=== PATIENT | male | born 1965 | race Caucasian/White ===

== ENCOUNTER 2024-02-25 16:00 | Emergency (ER) | payer BC, SELFPAY ==
[2024-02-25 16:08] VITALS: BP 150/86
[2024-02-25 16:40] LABS: % Basophils 0.5 % (0-2); % Immature Granulocytes 0.4 % (0-0.5); % Lymphocytes 19.4 % (20.5-51.1); % Neutrophils 72.7 % (42.2-75.2); Absolute Basophils 0.1 10^3/uL (0-0.2); Absolute Eosinophils 0.1 10^3/uL (0-0.7); Absolute Lymphocytes 1.9 10^3/uL (1.2-3.4); Absolute Monocytes 0.6 10^3/uL (0.1-0.6); Hematocrit 41.6 % (39.0-52.0); Mean Corp Hgb Conc. 33.7 g/dL (33.0-37.0); Mean Corpuscular Hgb 30.6 pg (27.0-31.0); Mean Corpuscular Volume 90.8 fL (80.0-94.0); Mean Platelet Volume 8.9 fL (7.4-10.4); Nucleated Red Blood Cells % 0 % (-); Platelet Count 338 10^3/uL (130-400); Red Blood Cell Count 4.58 10^6/uL (4.70-6.10); Red Cell Dist. Width 12.6 % (11.5-14.5); White Blood Cell Count 9.7 10^3/uL (4.8-10.8)
[2024-02-25 17:04] LABS: ALT (SGPT) 31 U/L (0-50); AST (SGOT) 29 U/L (17-59); Albumin 4.7 g/dl (3.5-5.0); Alkaline Phosphatase 51 U/L (38-126); Blood Urea Nitrogen 19 mg/dl (9-20); Calcium 9.7 mg/dl (8.4-10.2); Carbon Dioxide 26 mmol/L (22-30); Chloride 105 mmol/L (98-107); Glucose 101 mg/dl (70-99); Potassium 4.7 mmol/L (3.5-5.1); Sodium 141 mmol/L (135-145); Total Bilirubin 0.8 mg/dl (0.2-1.3); Total Protein 6.9 g/dl (6.3-8.2); eGFR > 60.00
[2024-02-25 19:08] VITALS: BP 145/92
[2024-02-25 19:14] VITALS: BMI 28.9
--- NOTE | 2024-02-25 19:31 | ED.GENMED ---
History of Present Illness
<Jorge Francois MD, Resident - Last Filed: 02/25/24 21:10>
General
Chief Complaint: Visual Problem
Source: patient
Time Seen by Provider: 02/25/24 18:54
Travel History
Have you traveled to any high risk areas for coronavirus over the past 14 days?: No
Have you had any contact with someone who has COVID-19?: No
Do you have any symptoms of coronavirus? Fever > 100 degrees, chills, cough, shortness of breath, sore throat, loss of taste or smell, muscle aches, or headache?: No
History of Present Illness
History of Present Illness:
Corwin Harkins, 58-year-old male with hypertension and hyperlipidemia, has had blurry vision for the past 2 weeks. The blurry vision came on with a headache, which lasted for a day, however the former has persisted. He sees a few spots in his
vision that are blurry; his vision outside of those spots is fine and unchanged from baseline. The blurry spots are constant, with no known alleviating or exacerbating factors. He has had a mild headache on-and-off. He saw an switchboard installer who did not
find any physical causes for the change. Then followed up with primary, who prescribed propranolol for presumed migraine prophylaxis. He then saw an documentation lead who did not discern any abnormal pathologies on the exam, and recommended he go to
the hospital to get evaluated for a possible stroke.
Past History
<Jorge Francois MD, Resident - Last Filed: 02/25/24 21:10>
Past History
ED Past Medical History: HTN and Hypercholesterolemia
Social History
Tobacco: Non-smoker
Alcohol: Occasional
Drug: None
Personal:
Living: with family
Employment: Employed
Review of Systems
<Jorge Francois MD, Resident - Last Filed: 02/25/24 21:10>
Review of Systems
Allergies reviewed?: Yes
All Other Systems: ROS reviewed and negative except as documented in HPI and ROS
Neurological: Reports other (blurry vision)
Phy Exam
<Jorge Francois MD, Resident - Last Filed: 02/25/24 21:10>
General Physical Exam
General Presentation: well appearing and no apparent distress
General Skin: warm and dry
General Habitus: normal
General Mental: alert
General Hydration: appears well hydrated
ENT Exam
ENT Exam: EOMI, pharynx normal, neck supple and normocephalic
Eye Exam
Eye Exam: PERRL, cornea clear and conjunctiva normal
Cardiovascular Exam
Cardiovascular Exam: regular rate/rhythm, no edema, no murmur and normal peripheral pulses
Pulmonary Exam
Pulmonary Exam: lungs clear, no respiratory distress, no rales, no crackles, no rhonchi, no stridor, no wheezing and no cough
Gastrointestinal Exam
Gastrointestinal Exam: normal bowel sounds, non tender, soft, no organomegaly, no pulsatile mass and non distended
Neurological Exam
Neurological Exam: alert, oriented x3, no motor deficits and speech normal
Musculoskeletal Exam
Musculoskeletal Exam: full ROM and no edema
Skin Exam
Skin Exam: normal color, warm/dry, no rash and no petechia
Psychiatric Exam
Psychiatric Exam: normal mood/affect
Course
<Jorge Francois MD, Resident - Last Filed: 02/25/24 21:10>
Orders/Labs/Results
Orders:
Orders
02/25/24 16:31
Complete Blood Count/With Diff Urgent
Comprehensive Metabolic Panel Urgent
02/25/24 19:03
CT Head W/o Iv Contrast Stat
Comment:
Reason For Exam: blurry vision
02/25/24 19:31
Electrocardiogram (*1) Urgent
Reason for Study: Other
Other Reason for Exam: blurry vision
EKG- Treatment ONCE
Abnormal Lab Results
02/25/24
16:31
RBC 4.58 L 10^6/uL
(4.70-6.10)
Absolute Neuts (auto) 7.0 H 10^3/uL
(1.4-6.5)
Lymphocytes % 19.4 L %
(20.5-51.1)
Glucose 101 H mg/dl
(70-99)
02/25/24 16:31
02/25/24 16:31
Vital Signs
Initial and Last Documented VS:
Initial Vital Signs
Temp Pulse Resp BP Pulse Ox
98.1 F 67 20 150/86 98
02/25/24 16:08 02/25/24 16:08 02/25/24 16:08 02/25/24 16:08 02/25/24 16:08
Last Documented Vital Signs
Temp Pulse Resp BP Pulse Ox
98.1 F 58 17 144/93 98
02/25/24 16:08 02/25/24 20:30 02/25/24 20:30 02/25/24 20:09 02/25/24 20:30
<Jaskaran HDamaris Laura, DO - Last Filed: 02/25/24 21:13>
Orders/Labs/Results
Orders:
Orders
02/25/24 16:31
Complete Blood Count/With Diff Urgent
Comprehensive Metabolic Panel Urgent
02/25/24 19:03
CT Head W/o Iv Contrast Stat
Comment:
Reason For Exam: blurry vision
02/25/24 19:31
Electrocardiogram (*1) Urgent
Reason for Study: Other
Other Reason for Exam: blurry vision
EKG- Treatment ONCE
Abnormal Lab Results
02/25/24
16:31
RBC 4.58 L 10^6/uL
(4.70-6.10)
Absolute Neuts (auto) 7.0 H 10^3/uL
(1.4-6.5)
Lymphocytes % 19.4 L %
(20.5-51.1)
Glucose 101 H mg/dl
(70-99)
02/25/24 16:31
02/25/24 16:31
Vital Signs
Initial and Last Documented VS:
Initial Vital Signs
Temp Pulse Resp BP Pulse Ox
98.1 F 67 20 150/86 98
02/25/24 16:08 02/25/24 16:08 02/25/24 16:08 02/25/24 16:08 02/25/24 16:08
Last Documented Vital Signs
Temp Pulse Resp BP Pulse Ox
98.1 F 58 17 144/93 98
02/25/24 16:08 02/25/24 20:30 02/25/24 20:30 02/25/24 20:09 02/25/24 20:30
<Jorge Francois MD, Resident - Last Filed: 02/25/24 21:10>
MDM/Problems Addressed
MDM/Problems Addressed:
CT Head was unremarkable for any acute changes. His symptoms are less likely due to a CVA/TIA. More likely that this is migraine with aura. He has an outpatient MR brain scheduled soon. Recommended to have that done and follow-up outpatient with
primary for further evaluation and management.
<Jorge Francois MD, Resident - Last Filed: 02/25/24 21:10>
*Critical Care Note
Total Time (30-74mins, 75-104mins- exclusive of procedures): Not Applicable
ED Attending Note
<Jorge Francois MD, Resident - Last Filed: 02/25/24 21:10>
-
Portions of this chart may have been created with voice recognition software.� Occasional wrong word or��sound alike� substitutions may have occurred due to the inherent limitations of voice recognition software.
<Jaskaran Laura DO - Last Filed: 02/25/24 21:13>
ED Attending Note
Patient seen and examined by attending physician: Yes
I performed a history and physical exam of patient and discussed management with resident, I reviewed resident's note and agree with documented findings and plan of care.: Yes
ED Attending Note:
I agree with Dr. Unger's note.
Patient presents 2 weeks of abnormal vision. Patient states she has patches of blurred vision in his visual field. This is a binocular situation. Symptoms do not improve with either the left or right eye closed. Sometimes the symptoms go away
and then return. No other neurologic complaint such as weakness numbness or tingling. Does have mild headache. 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 Patient was seen by an documentation lead today who recommended he come for a CAT scan.
Patient has an MRI scheduled as an outpatient in the next few days.
General: Awake, Alert, Oriented X3. No acute distress.
Vitals: unremarkable
Head: Atraumatic
Eyes: Pupils equal, EOMI
Throat: Airway intact, no exudates
Neck: Trachea midline
Lungs: Clear and equal b/l
Heart: Regular rate, no murmurs
Abd: Soft, Nontender, No pulsatile mass
Neuro: Cranial nerves intact, muscle strength equal bilaterally, cerebellar exam normal
Skin: Warm, dry, no rash
Extremities: pulses equal b/l, no edema
Patient has a nonfocal neurologic exam. Given symptoms have been present for 2 weeks and he has no other focal neurologic deficits I do not believe the patient requires hospitalization at this time. Outpatient MRI is reasonable.
Discharge Plan
Departure
Patient Disposition: Home (Routine Discharge)
Date of Disposition: 02/25/24
Time of Disposition: 21:05
Patient with high blood pressure during this ER visit?: Yes
Condition: Good
Discharge Problem:
Blurred vision, bilateral
Instructions: Stroke, Migraine in adults
Activity Restrictions/Additional Instructions:
Follow-up with primary to discuss abortive treatment options if a migraine disorder is suspected. MR brain outpatient recommended.
Interventions
Interventions:
*Risk Screen - Suicide Last Done: 02/25/24 16:08
*General Assessment Last Done: 02/25/24 16:08
*Neglect/Abuse Screening Last Done: 02/25/24 16:08
ED- Fall Risk Assessment Last Done: 02/25/24 19:15
*ED COVID-19 Vaccine History Last Done: 02/25/24 19:14
ED- Neurological Assessment Last Done: 02/25/24 20:42
ED-EENT Assessment Last Done: 02/25/24 20:28
ED Swallowing Screen Last Done: 02/25/24 20:28
Discharge Date and Time
Print Language: SWEDISH
[2024-02-25 20:09] VITALS: BP 144/93
[2024-02-25 21:00] VITALS: BP 132/84
[2024-02-25 21:24] VITALS: BP 138/82
[2024-02-25 21:48] LABS: Erythrocyte Sed Rate 9 mm/hour (0-20)
[2024-02-25 21:52] LABS: C-Reactive Protein < 5.00 mg/L (0.0-10.00)
== END 2024-02-25 21:36 | disposition home or self-care (01) ==
LOC: EMR 16:00
PROVIDERS: Student in an Organized Health Care Education/Training Program; EMERGENCY PHYSICIAN Emergency Medicine; FAMILY PHYSICIAN Family Medicine
DX: H53.8 Other visual disturbances (principal); R51.9 Headache, unspecified; E78.00 Pure hypercholesterolemia, unspecified; I10 Essential (primary) hypertension
CPT/HCPCS: 99285; 70450; 80053; 85025; 85652; 86140; 93005